=== PATIENT | male | born 1975 | race Caucasian/White ===

== ENCOUNTER 2017-02-26 21:24 | Emergency (ER) | payer MEDICAID ==
[2017-02-26 21:33] VITALS: BMI 27.1
[2017-02-26 21:38] VITALS: RESP 18; O2SAT 100
--- NOTE | 2017-02-26 22:16 | ED PDOC ---
Arrival/HPI - General Chief Complaint: Lower Extremity Problem/Injury Time Seen by Provider: 02/26/17 22:03 - History of Present Illness Narrative History of Present Illness (Text): 41 year old male w/ no significant past medical history presents s/p accidental trip and fall over an object in front of him, onto b/l knees now w/ left knee pain localized to patella and suprapatellar tendon ttp, denies any head trauma nor other concomitant body pain/head trauma/loc. 02/26/17 22:12 Time/Duration: 1-3 hours Past Medical History - Provider Review Nursing Documentation Reviewed: Yes - Cardiac Hx Cardiac Disorders: No - Pulmonary Hx Respiratory Disorders: No - Neurological Hx Neurological Disorder: No - HEENT Hx HEENT Disorder: No - Renal Hx Renal Disorder: No - Endocrine/Metabolic Hx Endocrine Disorders: No - Hematological/Oncological Hx Blood Disorders: No - Integumentary Hx Dermatological Disorder: No - Musculoskeletal/Rheumatological Hx Musculoskeletal Disorders: No - Gastrointestinal Hx Gastrointestinal Disorders: No - Genitourinary/Gynecological Hx Genitourinary Disorders: No - Psychiatric Hx Psychophysiologic Disorder: No Hx Substance Use: No - Anesthesia Hx Anesthesia: No Family/Social History - Physician Review Nursing Documentation Reviewed: Yes Family/Social History: No Known Family HX Smoking Status: Never Smoked Hx Alcohol Use: No Hx Substance Use: No Allergies/Home Meds Allergies/Adverse Reactions: Allergies No Known Allergies Allergy (Verified 02/26/17 21:33) Review of Systems - Physician Review All systems were reviewed & negative as marked: Yes - Review of Systems Constitutional: Normal Eyes: Normal ENT: Normal Respiratory: Normal Cardiovascular: Normal Gastrointestinal: Normal Genitourinary Male: Normal Musculoskeletal: Other (Joint pain ) Skin: Normal Neurological: Normal Endocrine: Normal Hemo/Lymphatic: Normal Psychiatric: Normal Physical Exam Vital Signs Reviewed: Yes Vital Signs Temp Pulse Resp BP Pulse Ox 02/26/17 21:38 98.2 F 82 18 159/95 H 100 Temperature: Afebrile Blood Pressure: Normal Pulse: Regular Respiratory Rate: Normal Appearance: Positive for: Well-Appearing, Non-Toxic, Comfortable Pain Distress: None Mental Status: Positive for: Alert and Oriented X 3 - Systems Exam Head: Present: Atraumatic, Normocephalic Pupils: Present: PERRL Extroacular Muscles: Present: EOMI Conjunctiva: Present: Normal Mouth: Present: Moist Mucous Membranes Neck: Present: Normal Range of Motion Respiratory/Chest: Present: Clear to Auscultation, Good Air Exchange. No: Respiratory Distress, Accessory Muscle Use Cardiovascular: Present: Regular Rate and Rhythm, Normal S1, S2. No: Murmurs Abdomen: Present: Normal Bowel Sounds. No: Tenderness, Distention, Peritoneal Signs Back: Present: Normal Inspection Upper Extremity: Present: Normal Inspection. No: Cyanosis, Edema Lower Extremity: Present: Other (left knee w/ no relative swelling , suprapatellar ttp , midline patellar ttp, no varus /valgus laxity, 2+ pulses throughout ). No: Edema Neurological: Present: GCS=15, CN II-XII Intact, Speech Normal, Motor Func Grossly Intact, Normal Sensory Function, Normal Cerebellar Funct, Norm Deep Tendon Reflexes, Gait Normal, Memory Normal Skin: Present: Warm, Dry, Normal Color. No: Rashes Psychiatric: Present: Alert, Oriented x 3, Normal Insight, Normal Concentration Medical Decision Making ED Course and Treatment: 41 year old male w/ traumatic left knee pain r/o fracture/joint space abnormalities .w/ xray discharge on r/i/c/e/ directions +/1 knee immobilizer for pain relief alhough little ligamentous laxity appreciated. 02/26/17 22:19 02/26/17 23:30 pt. still with pain , and able to bear weight albeit with reluctance. Refusing ct lower extremity and trial of mild narcotic medication. States that he would rather take a week of rest and return if pain worsens. 02/26/17 23:33 bulky prince wrap placed , pt crutch and and cane trained. Pt. has 600 mg motrin at home that he has been edcuated to take q6 hr prn / food. . - RAD Interpretation Radiology Orders: 02/26/17 22:27 KNEE WITH PATELLA LEFT 3 VIEW [RAD] Stat 02/26/17 23:24 EXT LOWER W/O CONTRAST LEFT [CT] Stat - Medication Orders Current Medication Orders: Discontinued Medications Ibuprofen (Motrin Tab) 800 mg PO STAT STA Stop: 02/26/17 22:06 Last Admin: 02/26/17 22:23 Dose: 800 mg Disposition/Present on Arrival - Present on Arrival Any Indicators Present on Arrival: No History of DVT/PE: No History of Uncontrolled Diabetes: No Urinary Catheter: No History of Decub. Ulcer: No History Surgical Site Infection Following: None - Disposition Have Diagnosis and Disposition been Completed?: Yes Diagnosis: Contusion of knee, left Disposition: HOME/ ROUTINE Disposition Time: 23:31 Patient Plan: Discharge Condition: IMPROVED Discharge Instructions (ExitCare): Knee Pain (ED) Print Language: [place] Prescriptions: Acetaminophen with Codeine [Tylenol with Codeine #3 Tablet] 1 each PO Q8 PRN #9 tablet PRN Reason: Pain, Moderate (4-7) Forms: [facility] ([place])
[2017-02-26] MEDS ORDERED: Oxycodone/Acetaminophen 5/325 mg Tab PO STA (23:36)
[2017-02-27 00:16] VITALS: BP 144/86; PULSE 80; TEMP 98.1
--- NOTE | 2017-02-27 10:21 | RAD ---
PROCEDURE: Left Knee Radiographs. HISTORY: Pain. COMPARISON: None. FINDINGS: BONES: Normal. No fracture. JOINTS: Joint spaces are preserved. There is small enthesophyte seen arising from the anterior superior margin of the patella. . There is also a tiny posterior patellar osteophytes. JOINT EFFUSION: Questionable trace joint effusion OTHER FINDINGS: None. IMPRESSION: No evidence of acute displaced fracture nor dislocation. Minor DJD as described questionable trace joint effusion if symptoms persist consider followup MRI
== END 2017-02-27 00:10 | disposition home or self-care (01) ==
LOC: ED 21:24
DX: S80.02XA Contusion of left knee, initial encounter (principal); W01.0XXA Fall on same level from slipping, tripping and stumbling without subsequent striking against object, initial encounter; Y92.89 Other specified places as the place of occurrence of the external cause